=== PATIENT | male | born 1990 | race Caucasian/White ===

== ENCOUNTER 2021-12-29 19:25 | Emergency (ER) | payer MEDICAID, SELFPAY ==
[2021-12-29 20:35] VITALS: BP 137/95; PULSE 82; RESP 18; TEMP 36.8; O2SAT 94
--- NOTE | 2021-12-29 20:45 | DI.RAD_ITS ---
Exam(s) XR ANKLE LT COMPLETE EXAM: XR ANKLE LT COMPLETE CLINICAL HISTORY: Pain and swelling TECHNIQUE: 2D digital imaging was performed. Three views. COMPARISON: CR XR ANKLE COMPLETE MIN 3V LT from 12/20/2021 FINDINGS: BONES: Small fragment again noted beneath the tip of the lateral malleolus. The bony density is agai n noted at the medial aspect of the talus no new fracture is present. No bony destructive lesion is s een. JOINTS:The ankle mortise is normally aligned. SOFT TISSUE: Diffuse swelling. IMPRESSION: Stable appearance of bilateral avulsion fractures time of the medial talus and lateral malleolus. No new abnormality. DATA REPOSITORY: RADIATION DOSE DELIVERED:
--- NOTE | 2021-12-29 20:50 | W.ED.GENAD ---
Discharge Plan Disposition Patient Disposition: HOME Condition: Improving Discharge Details Clinical Impression: Avulsion fracture of left ankle Primary Care Provider: Ant Mcgill ED Provider: Nicola Gibbs Discharge Instructions Instructions: Ankle Fracture (ED) Additional Instructions: You have evidence of extensive soft tissue swelling throughout the distal foreleg ankle and proximal foot. There is an avulsion fracture present, for which she was placed in a plaster of Martina stirrup and posterior splint. You will need to elevate the leg above the level of the heart and be nonweightbearing on crutches until seen in orthopedic clinic. Continue Tylenol and ibuprofen as needed for pain. Elevate above the level of the heart to reduce pain and swelling. Leave splint on until you may be seen in orthopedics. Return for blue toe, or increasing pain of the foot. Referral to orthopedics has been placed on your behalf. The office number is [phone] Stand Alone Forms: Work Release Medical Decision Making 31-year-old male states he slid into second base 2 weeks ago with his left foot in extension. He felt immediate pain was unable to ambulate. States he was seen at an [facility] where he was diagnosed with a sprained ankle, returned the next day and was told he might have a fracture, and has been wearing a cam walking boot since that time but has been using crutches and states he has been minimally weightbearing. He now reports ongoing pain and swelling and frustration with his care with no defined follow-up. Patient referred for x-ray which reveals extensive soft tissue swelling, Calcific density distal to the tip of the lateral malleolus, and small subtle calcification along the medial margin of the talus, most consistent in this clinic school scenario with an acute avulsion fragment. I feel likely much of his presentation today is due to the edema from the legs being dependent, likely some mild weightbearing and mobility of the leg by the patient, as well as frustration with his previous care. Due to his failure of trial of immobilization with a walking boot and Aircast, I will place him in a splint and have him be nonweightbearing until he may follow-up with orthopedics for recheck. HPI General Mode of arrival: ambulatory. Date/Time Provider Initiated Documentation: 12/29/21 19:34. Limitations to Documentation: no limitations. Information obtained by: patient. History of Present Illness 31 year old M presents to the emergency department with the chief complaint of Left ankle pain, question fracture, described as moderate, Quality is described as dull, and is localized to the left and lower extremity. Patient started experiencing this day(s) and it has been constant. Rest improves symptom(s), Other factors that worsen symptoms (Working) . Patient notes denies weakness. Patient did receive the following treatments prior to arrival, splint General Stated Complaint: Orthopedic CORNELIUS: 4 Review of Systems Narrative: Denies other injury, otherwise well. 4 systems were reviewed [facility] All Active Problems (Updated 12/29/21 @ 21:43 by Nicola Gibbs MD) Avulsion fracture of left ankle (Acute) Social History Smoking risk assessment performed?: No Exam Narrative Exam Narrative: GEN: awake, alert, oriented 3. Pleasant, well groomed, interactive. HEAD: Normocephalic, atraumatic ENT: Mucous membranes moist, oropharynx unremarkable, External ear exam unremarkable EYES: PERRL, EOMI NECK: Full ROM, no ANGEL, no menigismus CHEST/RESP: No respiratory distress EXT: Left ankle swollen and tender, range of motion limited by pain. Sensation is diminished but intact Neuro: Grossly normal neurologic exam, conversant, interactive. Psych: Speech fluent, thoughts congruent, affect normal Course Vital Signs Vital signs: Vital Signs Temperature 36.8 C 12/29/21 20:35 Pulse 82 12/29/21 20:35 Respiratory Rate 18 12/29/21 20:35 Blood Pressure 137/95 H 12/29/21 20:35 Pulse Oximetry 94 12/29/21 20:35 Temperature 36.8 C 12/29/21 20:35 Temperature Source Oral 12/29/21 20:35 Pulse 82 12/29/21 20:35 Respiratory Rate 18 12/29/21 20:35 Blood Pressure 137/95 H 12/29/21 20:35 Blood Pressure Position Supine 12/29/21 20:35 Pulse Oximetry 94 12/29/21 20:35 Oxygen Delivery Method Room Air 12/29/21 20:35 Oxygen Flow Rate 0 12/29/21 20:35 Pain Level 9 12/29/21 20:35 Comment 12/29/21 20:35 Procedures Orthopedic Splinting/Casting Injury #1: Side: left Lower Extremity Immobilizer: posterior splint and stirrup splint Other Orthopedic Equipment: crutches
--- NOTE | 2021-12-29 21:35 | DI.VRAD_ITS ---
PROCEDURE INFORMATION: Exam: XR Left Ankle Exam date and time: 12/29/2021 9:07 PM Age: 31 years old Clinical indication: Other: Pain and swelling TECHNIQUE: Imaging protocol: Radiologic exam of the Left ankle. Views: 3 or more views. COMPARISON: No relevant prior studies available. FINDINGS: Bones/joints: There is a small well corticated calcific density just distal to the distal tip of the lateral malleolus, probably a sequela of prior trauma or a small accessory ossicle. There is also subtle calcification along the medial margin of the talus as seen on the oblique view. A sequela of prior trauma or soft tissue calcification would be considered primarily. An acute avulsion fragment is not excluded. Clinical correlation is recommended. Otherwise, no acute fracture or dislocation is seen at the ankle. The ankle mortise appears intact. There is a small heel spur at the Achilles tendon insertion. Soft tissues: There is prominent soft tissue swelling throughout the distal foreleg, at the ankle, and through the visualized portion of the foot. IMPRESSION: 1. Extensive soft tissue swelling throughout the distal foreleg, ankle, and proximal foot, uncertain etiology. 2. Small well-corticated calcific density distal to the distal tip of the lateral malleolus, probably a sequela of prior trauma or possibly a small accessory ossicle. 3. Small subtle calcification along the medial margin of the talus demonstrated by the oblique view. A sequela of prior trauma or soft tissue calcification would be suspected primarily. An acute avulsion fragment is not excluded but considered less likely. Clinical correlation is recommended. 4. Otherwise, no acute fracture or dislocation seen at the left ankle. 5. Small heel spur at the insertion of the Achilles tendon. Dictated and Authenticated by: Prieto Ludwig MD. Ordering:VINCENT Petersen MD
== END 2021-12-29 22:22 | disposition home or self-care (01) ==
PROVIDERS: Emergency Provider Emergency Medicine; PCP Nurse Practitioner Family
DX: S82.892A Other fracture of left lower leg, initial encounter for closed fracture (principal); X58.XXXA Exposure to other specified factors, initial encounter
CPT/HCPCS: 29515; 99283; 73610; 99284

== ENCOUNTER 2022-02-03 13:54 | Outpatient (CLI) | payer MEDICAID, SELFPAY ==
--- NOTE | 2022-02-03 13:30 | DI.RAD_ITS ---
Exam(s) XR ANKLE LT COMPLETE EXAM: XR ANKLE LT COMPLETE CLINICAL HISTORY: left ankle f/u TECHNIQUE: 2D digital imaging was performed. Three views. COMPARISON: CR XR ANKLE COMPLETE MIN 3V LT from 12/20/2021 CR,XR XR ANKLE LT COMPLETE from 12/29/2021 FINDINGS: BONES: Stable tiny bony fragment beneath the tip of the lateral malleolus. Tiny stable tiny bony fr agment adjacent to the medial talus. No acute fracture is present. No bony destructive lesion is see n. Incidental spurring at the Achilles insertion. JOINTS:The ankle mortise is normally aligned. SOFT TISSUE: Marked diffuse soft tissue swelling greatest around the malleoli. IMPRESSION: Stable avulsion fractures. DATA REPOSITORY: RADIATION DOSE DELIVERED:
== END 2022-02-03 13:55 | disposition home or self-care (01) ==
LOC: DIORS 13:55
PROVIDERS: PCP Nurse Practitioner Family; Referring Provider Nurse Practitioner Family; Visit Provider Student in an Organized Health Care Education/Training Program
DX: S82.892D Other fracture of left lower leg, subsequent encounter for closed fracture with routine healing (principal); X58.XXXD Exposure to other specified factors, subsequent encounter
CPT/HCPCS: 73610

== ENCOUNTER → 2022-02-03 14:25 | Outpatient (CLI) | payer MEDICAID, SELFPAY ==
--- NOTE | 2022-02-03 14:45 | DI.US_ITS ---
Exam(s) US LOWER EXTREMITY VENOUS LT EXAM: US LOWER EXTREMITY VENOUS LT CLINICAL HISTORY: MASSIVE EDEMA IN FX SETTING, ? DVT S82.732A FX LT LOWER LEG. TECHNIQUE: Lower extremity venous ultrasound performed using grayscale, color-flow, and spectral Do ppler analysis. COMPARISON: No exams were available for comparison FINDINGS: There is thrombus visible in the popliteal vein measuring 6 cm in length. The gastrocnemius veins al so show thrombus. The common femoral, femoral veins demonstrate normal compressibility, augmentatio n, and color Doppler. The posterior tibial veins are patent. No saphenous vein thrombosis is seen. No hematoma or Ennis's cyst is seen. IMPRESSION: Popliteal and gastrocnemius vein thrombosis.. DATA REPOSITORY:
== END ==
PROVIDERS: PCP Nurse Practitioner Family; Visit Provider Student in an Organized Health Care Education/Training Program
DX: I82.432 Acute embolism and thrombosis of left popliteal vein (principal)
CPT/HCPCS: 93971